=== PATIENT | female | born 1990 | race Caucasian/White ===

== ENCOUNTER 2023-03-17 21:05 | Outpatient (REF) | payer MEDICAID, SELFPAY ==
[2023-03-21 00:08] LABS: Age Gdln ACOG Testing Note (.); HPV Aptima Negative (Negative); IGP, Aptima HPV, rfx 16/18,45 Note (.)
== END 2023-03-17 21:06 | disposition home or self-care (01) ==
LOC: LAB 21:05
PROVIDERS: Visit Provider Obstetrics & Gynecology
DX: Z12.4 Encounter for screening for malignant neoplasm of cervix (principal)
CPT/HCPCS: 87624; G0145